=== PATIENT | female | born 1965 | race Caucasian/White ===

== ENCOUNTER → 2017-05-17 | Outpatient (CLI) | payer OTHER | LOC: FIMAGING 09:21 | PROVIDERS: ATTEND Family Medicine | DX: Z12.31 Encounter for screening mammogram for malignant neoplasm of breast (principal) ==

== ENCOUNTER → 2018-06-29 | Outpatient (CLI) | payer OTHER | LOC: FIMAGING 14:03 | PROVIDERS: ATTEND Family Medicine | DX: Z12.31 Encounter for screening mammogram for malignant neoplasm of breast (principal) ==

== ENCOUNTER 2018-09-03 11:30 | Emergency (ER) | payer OTHER ==
--- NOTE | 2018-09-03 12:13 | EDPHY ---
H & P Stated Complaint: POST MENOPAUSAL/ABNL HEAVY VAGINAL BLEEDING SINCE TUESDAY Time Seen by Provider: 09/03/18 11:57 HPI/ROS: Chief complaint: Vaginal bleeding History of present illness: This is a 52-year-old female who presents to the emergency department for vaginal bleeding. She reports she is postmenopausal with her last menstrual cycle approximately 15 months ago. She has been fine until 2 days ago when she developed bleeding. She developed persistent bleeding with associated pelvic cramping. No clot passage. This feels like a typical menstrual cycle for her. She denies potential precipitating factors. She denies alleviating factors. She denies other associated signs or symptoms including no urinary symptoms. No systemic symptoms such as dizziness or fatigue. Review of systems: A 10 point review of systems was obtained and other than described above was negative. - Personal History LMP (Females 10-55): Now Current Tetanus Diphtheria and Acellular Pertussis (TDAP): Yes - Medical/Surgical History Hx Asthma: No Hx Chronic Respiratory Disease: No Hx Diabetes: No Hx Cardiac Disease: No Hx Renal Disease: No Hx Cirrhosis: No Hx Alcoholism: No Hx HIV/AIDS: No Hx Splenectomy or Spleen Trauma: No Other PMH: HTN, HIGH CHOL, PAINFUL PERIODS, WATER RETENTION, TUBAL LIG - Social History Smoking Status: Never smoked - Physical Exam Exam: General Appearance: Alert, nontoxic. Eyes: Pupils equal and round no pallor or injection. ENT, Mouth: Mucous membranes moist. Respiratory: There are no retractions, lungs are clear to auscultation. Cardiovascular: Regular rate and rhythm. Gastrointestinal: Abdomen is soft and non tender, no masses, bowel sounds normal. Neurological: Alert and oriented. Strength and sensation intact. Skin: Warm and dry, no rashes. Musculoskeletal: Neck is supple non tender. Extremities are symmetrical, full range of motion. Psychiatric: Patient is oriented X 3, there is no agitation. Constitutional: Initial Vital Signs Temperature (C) 36.7 C 09/03/18 11:35 Heart Rate 90 09/03/18 11:35 Respiratory Rate 18 09/03/18 11:35 Blood Pressure 125/81 H 09/03/18 11:35 O2 Sat (%) 93 09/03/18 11:35 O2 Delivery Mode Room Air Allergies/Adverse Reactions: sumatriptan [From Imitrex] Allergy (Verified 09/03/18 11:34) Home Medications: Medication Instructions Recorded [facility] Thyroid 09/02/15 Lisinopril 09/02/15 Medical Decision Making - Diagnostics Imaging Results: Imaging Impressions Pelvic/Renal Ultrasound 09/03/18 12:18 Impression: 1. There is a 2.5 x 1.9 x 1.2 cm polypoid structure (with stock vascularity) at the level of the fundal endometrium. Hysteroscopy and histologic sampling is recommended for further assessment to exclude a neoplasm in this postmenopausal female with recent recurrent vaginal bleeding. 2. Nonvisualization of the ovaries, despite transabdominal and endovaginal protocols. 3. There is a 1.7 cm fundal intramural fibroid. Findings and recommendations were discussed with Robinson Salazar PA-C at 13:33, on . Imaging: Discussed imaging studies w/ call out clerk Radiologist ED Course/Re-evaluation: Patient seen under the supervision of my secondary supervising physician Dr. Angela Gutierrez. Patient presents for vaginal bleeding in the postmenopausal state. She is nontoxic. Vital signs are stable. Hemoglobin and hematocrit within normal limits. She does appear to be hemodynamically stable. Ultrasound does show a polyp in the uterus and a fibroid. Ovaries are not visualized. I have consulted with OBGYN, Dr. Stern. He is comfortable with patient being discharged home and following up in clinic for further evaluation and care and biopsy of the polyp. He does not recommend further imaging studies despite the fact ovaries were not seen. The plan has been discussed with the patient who voiced understanding and agreement with it. Differential Diagnosis: Dysfunctional uterine bleeding, coagulopathy, tumor including malignancy, fibroid, with complications - Data Points Laboratory Results: Laboratory Results 09/03/18 11:55 09/03/18 11:55 09/03/18 09/03/18 09/03/18 11:55 11:55 11:55 WBC 7.43 10^3/uL 10^3/uL (3.80-9.50) RBC 4.82 10^6/uL 10^6/uL (4.18-5.33) Hgb 14.2 g/dL g/dL (12.6-16.3) Hct 41.5 % % (38.0-47.0) MCV 86.1 fL fL (81.5-99.8) MCH 29.5 pg pg (27.9-34.1) MCHC 34.2 g/dL g/dL (32.4-36.7) RDW 13.9 % % (11.5-15.2) Plt Count 387 10^3/uL 10^3/uL (150-400) MPV 9.6 fL fL (8.7-11.7) Neut % (Auto) 60.5 % % (39.3-74.2) Lymph % (Auto) 29.6 % % (15.0-45.0) Norman % (Auto) 7.3 % % (4.5-13.0) Eos % (Auto) 1.6 % % (0.6-7.6) Baso % (Auto) 0.9 % % (0.3-1.7) Nucleat RBC Rel Count 0.0 % % (0.0-0.2) Absolute Neuts (auto) 4.49 10^3/uL 10^3/uL (1.70-6.50) Absolute Lymphs (auto) 2.20 10^3/uL 10^3/uL (1.00-3.00) Absolute Monos (auto) 0.54 10^3/uL 10^3/uL (0.30-0.80) Absolute Eos (auto) 0.12 10^3/uL 10^3/uL (0.03-0.40) Absolute Basos (auto) 0.07 10^3/uL 10^3/uL (0.02-0.10) Absolute Nucleated RBC 0.00 10^3/uL 10^3/uL (0-0.01) Immature Gran % 0.1 % % (0.0-1.1) Immature Gran # 0.01 10^3/uL 10^3/uL (0.00-0.10) Sodium 138 mEq/L mEq/L (135-145) Potassium 4.2 mEq/L mEq/L (3.5-5.2) Chloride 106 mEq/L mEq/L (97-110) Carbon Dioxide 23 mEq/l mEq/l (22-31) Anion Gap 9 mEq/L mEq/L (6-14) BUN 18 mg/dL mg/dL (7-23) Creatinine 0.7 mg/dL mg/dL (0.6-1.0) Estimated GFR > 60 Glucose 102 mg/dL H mg/dL (70-100) Calcium 9.3 mg/dL mg/dL (8.5-10.4) Beta HCG, Qual NEGATIVE Medications Given: Discontinued Medications Sodium Chloride (Ns) 1,000 mls @ 0 mls/hr IV EDNOW ONE; Wide Open PRN Reason: Protocol Stop: 09/03/18 12:19 Last Admin: 09/03/18 12:23 Dose: 1,000 mls Departure - Departure Disposition: Home, Routine, Self-Care Clinical Impression: Dysfunctional uterine bleeding Instructions: Dysfunctional Uterine Bleeding (ED) Additional Instructions: Please call and follow up with OBGYN tomorrow for continued evaluation and care You need a biopsy of a lesion in your uterus You can use ibuprofen 6 day 100 mg every 8 hr as needed for pain for the next 2- 3 days If symptoms worsen or new symptoms develop including increasing pain, increasing bleeding, systemic symptoms such as dizziness, lightheadedness or worsening fatigue please return to the emergency room for recheck. Referrals: Rosanna Hawthorne MD [Primary Care Provider] - As per Instructions Juan Jose Stern MD [Medical Doctor] - As per Instructions
[2018-09-03] MEDS ORDERED: NS 1,000 ML IV ONE (12:18)
[2018-09-03 12:26] LABS: PLATELET COUNT 387 10^3/uL (150-400)
[2018-09-03 13:17] VITALS: BP 111/67
== END 2018-09-03 14:00 | disposition home or self-care (01) ==
DX: N93.8 Other specified abnormal uterine and vaginal bleeding (principal); R93.5 Abnormal findings on diagnostic imaging of other abdominal regions, including retroperitoneum; E86.9 Volume depletion, unspecified; I10 Essential (primary) hypertension; E78.00 Pure hypercholesterolemia, unspecified; Z78.0 Asymptomatic menopausal state

== ENCOUNTER 2018-10-18 07:03 | Day surgery (SDC) | payer OTHER | END 2018-10-18 20:45 | disposition home or self-care (01) | LOC: FSGY 07:03 ==